=== PATIENT | female | born 2000 | race Caucasian/White ===

== ENCOUNTER 2024-02-01 12:33 | Emergency (ER) | payer BC, OTHER ==
[~2024-02-01] VITALS: Ht 165.1 cm; Wt 62.7 kg
[2024-02-01 12:33] VITALS: BP 115/72; TEMP 98.4; O2SAT 100
== END 2024-02-01 16:04 | disposition home or self-care (01) ==
LOC: M ED 12:33
DX: J06.9 Acute upper respiratory infection, unspecified (principal); Z88.2 Allergy status to sulfonamides; Z88.1 Allergy status to other antibiotic agents; Z91.013 Allergy to seafood; Z91.030 Bee allergy status